=== PATIENT | female | born 1960 | race Caucasian/White ===

== ENCOUNTER → 2021-10-01 07:47 | Outpatient (CLI) | payer OTHER, SELFPAY ==
--- NOTE | ~2021-10-01 | US_ITS ---
EXAMINATION: US right upper quadrant EXAM DATE: 10/01/2021 08:11 INDICATION: Elevated transaminase level . TECHNIQUE: Multiple grayscale and Doppler images of the abdomen right upper quadrant were obtained (b y a technologist who performed the scan) and subsequently reviewed. There is no prior study for mor chang. FINDINGS: The pancreatic head and body are normal in appearance. The pancreatic tail is not visualized. There is echogenic liver parenchyma, hepatic steatosis. There is a 1 cm cyst anteriorly. There is no feliz dence of intrahepatic biliary duct dilation. Portal venous flow was seen in the hepatopedal, normal direction and has normal Doppler waveform. No right-sided hydronephrosis. Common bile duct measures 5 mm, which is normal. The gallbladder wall is normal in thickness, with ex pected amount of distention. No sonographic evidence of pericholecystic fluid. There is no cholelit hiases. Technologist performing exam reports patient did not demonstrate sonographic Iglesias's sign. Please note that this sign is less reliable in patients who have received pain medication. IMPRESSION: Hepatic steatosis. Reviewed, dictated and finalized at location A. RA MAKER IMPRESSION: Hepatic steatosis.
== END ==
PROVIDERS: PCP Internal Medicine; Visit Provider Internal Medicine
DX: R74.01 Elevation of levels of liver transaminase levels (principal); K76.0 Fatty (change of) liver, not elsewhere classified
CPT/HCPCS: 76705

== ENCOUNTER → 2021-11-18 13:33 | Outpatient (CLI) | payer OTHER, SELFPAY ==
--- NOTE | ~2021-11-18 | MM_ITS ---
EXAMINATION: MM screening aria BI w bonifacio HISTORY: Screening TECHNIQUE: Craniocaudal and mediolateral oblique 3-D tomosynthesis images were obtained and synthetic 2-D images were generated. CAD analysis was submitted and interpreted. COMPARISON: No prior mammogram is available for comparison at this institution. BREAST PARENCHYMAL COMPOSITION: There are scattered areas of fibroglandular density. FINDINGS: There is no evidence of suspicious mass, calcification, or architectural distortion to sugg est malignancy in either breast. There has been no suspicious interval change. IMPRESSION: 1. No mammographic evidence of malignancy. 2. Recommend routine screening mammography in one year. BI-RADS Category 1: Negative Reviewed, dictated and finalized at location A. R SPATIAL SCIENTIST
== END ==
PROVIDERS: PCP Internal Medicine; Visit Provider Internal Medicine
DX: Z12.31 Encounter for screening mammogram for malignant neoplasm of breast (principal)
CPT/HCPCS: 77063; 77067

== ENCOUNTER 2023-05-24 11:47 | Emergency (ER) | payer OTHER, SELFPAY ==
--- NOTE | ~2023-05-24 | XR_ITS ---
EXAMINATION: XR foot LT min 3V DATE: 05/24/2023 12:33 INDICATION: Left foot injury and pain. TECHNIQUE: 4 views of left foot were obtained. COMPARISON: None. FINDINGS: Bone alignment is normal. No fracture. There is mild osteoarthritis of first metatarsophala ngeal joint and some of the interphalangeal joints. IMPRESSION: 1. Mild polyarticular osteoarthritis. Reviewed, dictated and finalized at location A.
[2023-05-24 12:06] VITALS: BP 178/86; PULSE 90; RESP 16; TEMP 36.6; O2SAT 99
--- NOTE | 2023-05-24 12:33 | ED.LOWEXIN ---
HPI - Extremity Injury (Lower) General Chief Complaint: Extremity Injury, Lower Stated Complaint: Broken toes 10 days ago; issues with ball of foot Time Seen by Provider: 05/24/23 12:20 Source: patient, RN notes reviewed and old records reviewed Mode of arrival: ambulatory Limitations: no limitations History of Present Illness HPI Narrative: 62 year old female who presents to [facility] care with complaints of injury to her left foot 10 days and has been wearing boot. She states that 10 days ago she fell and got 2nd and 3rd toes left foot caught and twisted in sandal and had been wearing boot for support. She reports that on Wednesday she took boot off and now is having pain in the ball of her left foot and painful to walk on it and it is popping when she walks, has been walking on heel. Patient has been using ice to her left foot for comfort measure.No obvious deformity noted, circulation and sensation is intact to left foot. MD complaint: foot injury Onset (ago): day(s) (10) Type of Injury: other (twisted 2nd and 3rd toes in sandal when she fell) Severity scale (1-10): 4 Exacerbating factors: weight bearing and other (walking) Treatments prior to arrival: cold therapy and other (wearing orthopedic boot) Related Data Allergies Allergy/AdvReac Type Severity Reaction Status Date / Time No Known Allergies Allergy Verified 05/24/23 12:01 Review of Systems Review of Systems: CONSTITUTIONAL: Denies fever, chills, or sweats. EYES: Denies visual changes, redness, or discharge. ENT: Denies rhinorrhea, congestion, sore throat, or otalgia. CARDIOVASCULAR: Denies chest pain, palpitations, or edema. RESPIRATORY: Denies cough or dyspnea. GASTROINTESTINAL: Denies abdominal pain, nausea, vomiting, or diarrhea. GENITOURINARY: Denies dysuria or hematuria. SKIN: Denies rash or itching. MUSCULOSKELETAL: Denies back pain, positive for left foot pain or myalgia. NEUROLOGIC: Denies headache, numbness, or weakness. PSYCHIATRIC: Denies anxiety or depression. All systems reviewed & are unremarkable except as noted in HPI and below [facility] Social History Social History (Updated 05/25/23 @ 14:16 by Amina Cardona NP) Smoking status: Never smoker Alcohol intake: unknown Substance use type: does not use Living arrangements: with family Gender identity (if verbalized by the patient): Female Comments At time of signature, agree with nursing past medical, surgical, social and family history. There is no relevant family history pertinent to the presenting complaint Exam Narrative: GENERAL: Well-appearing, well-nourished, and in no acute distress. HEAD: Normocephalic, atraumatic. EYES: PERRLA and EOMI. ENT: Nares clear, no rhinorrhea or epistaxis. Mucous membranes moist. NECK: Supple. no lymphadenopathy CHEST: Clear to auscultation. No respiratory distress.SAO2 99% on room air HEART: Regular rate and rhythm. No murmur heard. Normal peripheral pulses. ABDOMEN: Soft, nontender, nondistended, normal active bowel sounds. EXTREMITIES: Normal range of motion. No edema.Pain to the ball of her left foot since Wednesday 3 days, had toe injury left 2nd,3rd toe 10 days ago had been wearing boot for support and using ice. no obvious deformity to left foot, circulation sensation and mobility is intact but with pain with ambulation to ball of left foot. SKIN: Warm, dry, no rash. NEURO: No focal deficits. Alert and oriented x3. Course Course Emergency Course: Patient is aware of diagnosis, understands and agrees to treatment plan.? Anticipatory guidance given.? Patient agrees to follow-up as directed and is aware of reasons to seek care at the emergency department. Portions of this record may have been created with voice recognition software Level of Care: Express Care Visit Vital Signs Vital signs: Vital Signs Temperature 36.6 C 05/24/23 12:06 Pulse Rate 90 05/24/23 12:06 Respiratory Rate 16 05/24/23 12:06 Blood Pressure 178/86 H 05/08
== END 2023-05-24 12:52 | disposition home or self-care (01) ==
PROVIDERS: Emergency Provider Registered Nurse; PCP Internal Medicine
DX: M79.672 Pain in left foot (principal)
CPT/HCPCS: 73630; 99213; G0463

== ENCOUNTER 2023-09-08 08:10 | Outpatient (CLI) | payer OTHER, SELFPAY ==
[2023-09-08 18:57] LABS: Basophils Absolute Auto 0.1 K/mm3 (0.0-0.1); Eosinophils Absolute Auto 0.1 K/mm3 (0-0.3); Eosinophils Percent Auto 2.8 % (0-4.4); Hematocrit 42.6 % (37.0-47.0); Hemoglobin 13.9 g/dL (12.0-15.0); Immature Granulocyte Absolute 0.01 K/mm3 (0.00-0.031); Immature Granulocyte Percent A 0.2 % (0-0.5); Lymphocytes Absolute Auto 1.69 K/mm3 (0.9-3.2); Lymphocytes Percent Auto 33.9 % (18.3-44.2); Mean Corpuscular HGB Conc 32.6 g/dl (32-36); Mean Corpuscular Hemoglobin 34.1 pg (26-34); Mean Corpuscular Volume 104.4 fl (80-100); Mean Platelet Volume 10.3 fl (7.4-10.4); Monocytes Absolute Auto 0.6 K/mm3 (0.1-0.6); Neutrophils Absolute Auto 2.5 K/mm3 (1.3-6.7); Neutrophils Percent Auto 50.1 % (45.5-73.1); Platelet Count Result 208 k/mm3 (150-375); Red Blood Count 4.08 M/mm3 (4.2-5.4); Red Cell Distribution Width 11.8 % (11.5-14.5)
[2023-09-08 20:31] LABS: Vitamin D 25 Hydroxy 54.2 ng/mL
[2023-09-08 21:30] LABS: Alanine Aminotransferase 75 U/L (6-35); Albumin Level 4.5 g/dL (3.5-5.1); Alkaline Phosphatase 86 U/L (38-126); Anion Gap 6 mmol/L (8-16); Aspartate Amino Transferase 73 U/L (14-36); Bilirubin,Total 0.9 mg/dL (0.2-1.3); Blood Urea Nitrogen 11 mg/dL (7-17); Calcium 9.8 mg/dL (8.4-10.2); Carbon Dioxide 31 mmol/L (22-30); Chloride 98 mmol/L (98-107); Cholesterol 260 mg/dL (0-200); Estimated Glomerular Filt Rate > 60; Glucose 90 mg/dL (65-110); HDL Direct 82 mg/dL; Sodium 135 mmol/L (137-145); Triglycerides 79 mg/dL (<150)
[2023-09-08 21:43] LABS: LDL Cholesterol Direct 146 mg/dL
== END 2023-09-08 08:11 | disposition home or self-care (01) ==
LOC: ANHGOSHLAB 08:12
PROVIDERS: PCP Family Medicine; Visit Provider Family Medicine
DX: Z00.00 Encounter for general adult medical examination without abnormal findings (principal); E66.9 Obesity, unspecified; I10 Essential (primary) hypertension; K21.9 Gastro-esophageal reflux disease without esophagitis; Z79.899 Other long term (current) drug therapy
CPT/HCPCS: 36415; 80053; 80061; 82306; 82607; 82728; 84443; 85025

== ENCOUNTER → 2023-12-23 09:57 | Outpatient (CLI) | payer OTHER, SELFPAY ==
--- NOTE | ~2023-12-23 | MM_ITS ---
EXAMINATION: MM screening aria BI w bonifacio HISTORY: Screening mammogram TECHNIQUE: Craniocaudal and mediolateral oblique 3-D tomosynthesis images were obtained and synthetic 2-D images were generated. CAD analysis was submitted and interpreted. COMPARISON: 11/18/2021 BREAST PARENCHYMAL COMPOSITION: There are scattered areas of fibroglandular density. FINDINGS: No suspicious mass, calcification, or architectural distortion are identified in either nancy ast to suggest malignancy. There has been no suspicious interval change. IMPRESSION: 1. No mammographic evidence of malignancy. 2. Recommend routine screening mammography in one year. BI-RADS Category 1: Negative Reviewed, dictated and finalized at location A. ING SANDER
== END ==
PROVIDERS: PCP Family Medicine; Visit Provider Family Medicine
DX: Z12.31 Encounter for screening mammogram for malignant neoplasm of breast (principal)
CPT/HCPCS: 77063; 77067

== ENCOUNTER 2024-01-21 14:42 | Emergency (ER) | payer OTHER, SELFPAY ==
--- NOTE | ~2024-01-21 | XR_ITS ---
EXAMINATION: XR finger 4th LT min 2V DATE: 01/21/2024 15:17 INDICATION: One month of pain at the distal left fourth digit TECHNIQUE: Dorsal palmar, lateral and 2 oblique views of the left fourth digit were obtained COMPARISON: None FINDINGS: Intra-articular fracture at the base of the left fourth distal phalanx with mild dorsal and proximal distraction of a small fragment at the dorsal base of the left fourth distal phalanx. This is nearly indiscernible on all but the lateral projection. There is less than 1 mm step-off along the articular surface. No other fractures identified. Mild osteoarthritis at the visualized interphalangeal joints and at the first carpometacarpal joint. IMPRESSION: 1. Mild dorsal and proximal distraction of a small likely avulsion fracture fragment at the dorsal ba se of the left fourth distal phalanx. Reviewed, dictated and finalized at location B. IMPRESSION: 1. Mild dorsal and proximal distraction of a small likely avulsion fracture fra gment at the dorsal base of the left fourth distal phalanx.
[2024-01-21 15:06] VITALS: BP 156/96; PULSE 76; RESP 16; TEMP 37; O2SAT 99
[2024-01-21 15:09] VITALS: BP 156/96; PULSE 76; RESP 16; TEMP 37; O2SAT 99
--- NOTE | 2024-01-21 15:39 | ED.EXTPRO ---
HPI - Extremity Problem General Chief complaint: Extremity Injury, Upper Stated complaint: Left Finger Injury Time Seen by Provider: 01/21/24 15:32 Source: patient and RN notes reviewed Mode of arrival: ambulatory Limitations: no limitations History of Present Illness HPI Narrative: Patient presents today complaining of an injury to the left 4th finger. Approximately 1 month ago, patient jammed her finger when she fell in her yard letting her dogs outside. She has applied ice and wore a splint occasionally. She is currently pain-free but complains of stiffness to the D IP. Related Data Home Medications Medication Instructions Recorded Confirmed clobetasol 0.05 % scalp solution 1 applic topical DAILY PRN Itching 09/07/23 01/21/24 fluocinonide 0.05 % topical 1 applic topical DAILY PRN Itching 09/07/23 01/21/24 solution ivermectin 1 % topical cream 1 applic topical DAILY 09/07/23 01/21/24 (Soolantra) multivitamin 1 tablet PO DAILY 09/07/23 01/21/24 Allergies Allergy/AdvReac Type Severity Reaction Status Date / Time No Known Allergies Allergy Verified 01/21/24 15:07 Review of Systems Review of Systems: CONSTITUTIONAL: Denies body aches, fever, chills, or sweats. EYES: Denies visual changes, redness, or discharge. ENT: Denies rhinorrhea, congestion, sore throat, or otalgia. CARDIOVASCULAR: Denies chest pain, palpitations, or edema. RESPIRATORY: Denies cough or dyspnea. GASTROINTESTINAL: Denies abdominal pain, nausea, vomiting, or diarrhea. GENITOURINARY: Denies dysuria or hematuria. SKIN: Denies rash, itching, or wounds. MUSCULOSKELETAL: Denies back pain or myalgia.+ finger injury NEUROLOGIC: Denies headache, numbness, tingling, or weakness. PSYCH: Denies depression or anxiety. [facility] Past Medical History Medical History Allergies Broken arm Right Surgery as a child GERD (gastroesophageal reflux disease) Family History Family History Father Alcoholism Carcinoma of colon Lung cancer Mother COPD (chronic obstructive pulmonary disease) Sibling Lung cancer Brain cancer Grandparent Lung cancer Heart disease Social History Social History Smoking status: Never smoker Alcohol intake: current Substance use type: does not use Living arrangements: with family Gender identity (if verbalized by the patient): Female Comments At time of signature, I have reviewed and agree with nursing past medical, surgical, social and family history unless otherwise noted. Please see nursing chart for further information. There is no relevant family history pertinent to the presenting complaint Exam Narrative: GENERAL: Well-appearing, well-nourished, and in no acute distress. HEAD: Normocephalic, atraumatic. EYES: EOMI. No redness or drainage. Conjunctivae normal. ENT: Mucous membranes pink and moist. NECK: Normal AROM. CHEST: No respiratory distress. EXTREMITIES: Left 4th finger: Mild edema and hyperpigmentation to the D IP and distal phalanx. Mildly tender to palpation. Distal sensation intact. Capillary refill normal. Somewhat decreased range of motion of the D IP due to swelling. SKIN: Warm, dry, no rash. Capillary refill normal. Normal skin turgor. NEURO: No focal deficits. Alert and oriented x3. Gait steady. PSYCH: Normal affect. No signs of depression or anxiety. Course Course Level of Care: Express Care Visit Vital Signs Vital signs: Vital Signs Temperature 98.6 F 01/21/24 15:06 Pulse Rate 76 01/21/24 15:06 Respiratory Rate 16 01/21/24 15:06 Blood Pressure 156/96 H 01/21/24 15:06 Pulse Oximetry 99 01/21/24 15:06 Temperature 98.6 F 01/21/24 15:09 Pulse Rate 76 01/21/24 15:09 Respiratory Rate 16 01/21/24 15:09 Blood Pressure 156/96 H 01/21/24 15:09 Pul
== END 2024-01-21 15:46 | disposition home or self-care (01) ==
PROVIDERS: Emergency Provider Nurse Practitioner; PCP Family Medicine
DX: S62.635A Displaced fracture of distal phalanx of left ring finger, initial encounter for closed fracture (principal); W19.XXXA Unspecified fall, initial encounter; K21.9 Gastro-esophageal reflux disease without esophagitis
CPT/HCPCS: 73140; 99213; G0463

== ENCOUNTER 2024-11-21 08:58 | Outpatient (CLI) | payer OTHER, SELFPAY ==
--- NOTE | ~2024-11-21 | DEXA_ITS ---
Bone Density Report Name: JOHN RUSSELL Age: 64 Sex: Female Ethnicity: White Date of : 1960 Indication: postmenopausal; screening for osteoporosis; Referring Provider: LARRY, HUGH Study: Bone densitometry was performed. Exam Date: November 21, 2024 Accession number: [id number] Bone Density: Region BMD T-score Z-score Classification AP Spine(L1-L4) 0.867 -1.6 0.0 Osteopenia Femoral Neck (Left) 0.599 -2.3 -0.8 Osteopenia Total Hip (Left) 0.719 -1.8 -0.7 Osteopenia Femoral Neck (Right) 0.605 -2.2 -0.8 Osteopenia Total Hip (Right) 0.754 -1.5 -0.4 Osteopenia Femoral Neck Mean 0.602 -2.2 -0.8 Osteopenia Total Hip Mean 0.736 -1.7 -0.6 Osteopenia World Health Organization criteria for BMD impression classify patients as: Normal (T-score at or above -1.0), Osteopenia (T-score between -1.0 and -2.5), or Osteoporosis (T-score at or below -2.5). Clinical Information Provided by Patient: Has used the following medications: Vitamin D Patient maximum height was 62 Drinks caffeinated beverages Onset of menses at age 12 Number of children 2 Impression: The patient has low bone mass, based on the Left Femoral Neck T-score. Discussion: BONE DENSITY IS LOW AT ONE OR MORE SKELETAL SITES. This patient's lowest T-score is low at one or more skeletal sites. It meets the World Health Organization's (WHO) criteria for ?low bone mass? (T-score between -1.0 and -2.5). The patient's 10-year risk of fracture as calculated by FRAX is less than the threshold where pharmacological therapy is recommended by the National Osteoporosis Foundation (NOF). However, all treatment decisions require clinical judgment and consideration of individual patient factors, including patient preferences, comorbidities, previous drug use, risk factors not captured in the FRAX model (e.g., frailty, falls, vitamin D deficiency, increased bone turnover, interval significant decline in bone density) and possible under or overestimation of fracture risk by FRAX. The patient should follow a healthful lifestyle (good nutrition with adequate calcium and vitamin D, and appropriate weight-bearing exercise). Follow-Up: Consider repeating this study in 2 to 3 years to reassess this patient's status, or sooner if there is some new clinical indication. Reported by: SARAH on 11/21/2024 9:32:00 AM. Reviewed, dictated and finalized at location A.
== END 2024-11-21 08:59 | disposition home or self-care (01) ==
LOC: CHSIMG 09:01
PROVIDERS: PCP Family Medicine; Visit Provider Nurse Practitioner Women's Health
DX: Z78.0 Asymptomatic menopausal state (principal); M85.89 Other specified disorders of bone density and structure, multiple sites
CPT/HCPCS: 77080

== ENCOUNTER 2024-12-07 01:18 | Day surgery (SDC) | payer OTHER, SELFPAY ==
[2024-11-23 15:47] VITALS: BMI 31.7
--- OUTSIDE RECORDS SUMMARY | 2024-12-07 01:24 | XMS_ITS | Encounter Summary ---
Author Organization [facility] Address [address] [place] [address]. [place], [place] [id number] [place] [address] Care Team Providers Care Wrapper Stemmer Operator Name Role Phone Jj Escobedo MD Primary Care Provider Encounter Details Date Type Department Care Team (Latest Contact Info) Description 12/01/2024 [employer] Message Enc [facility] Multispecialty Care - [place] [address] [place] [address] [address] [place] [address] [place] [address] [place] [address] [address] [place], [place] [id number] Signs of dementia Social History Tobacco Use Types Packs/Day Years Used Date Smoking Tobacco: Former Cigarettes 0.5 15 Smokeless Tobacco: Never Comments:quit 30 years ago . Counseled by Dr Escobedo. Alcohol Use Standard Drinks/Week Comments Yes 1.7 (1 standard drink = 0.6 oz p ure alcohol) 1 glass a night PHQ-2 Answer Date Recorded PHQ-2 Score - If the patient scores above 3, please move on to questions 3-9 1 08/27/2021 Comments No Sex and Gender Information Value Date Recorded Sex Assigned at Not on file Legal Sex Female 2:43 PM CDT Gender Identity Not on file Sexual Orientation Not on file documented as of this encounter Plan of Treatment Not on file documented as of this encounter Visit Diagnoses Not on filedocumented in this encounter Additional Health Concerns Assessment Noted Time PHQ-9 Depression Total Score: 4 08/27/20 21 10:30 AM CDT documented as of this encounter Care Teams Wrapper Stemmer Operator Relationship Specialty Start Date End Date Jj Escobedo MD [address] [facility] [address] [place] [address] PCP - General INTERNAL MEDICINE 04/04/21 documented as of this encounter
--- OUTSIDE RECORDS SUMMARY | 2024-12-07 01:24 | XMS_ITS | Encounter Summary ---
Author Organization [facility] Address [facility] [place], [place] [id number] [place] [address] Care Team Providers Care Route Driver Name Role Phone Jj Escobedo MD Primary Care Provider [phone] Encounter Details Date Type Department Care Team (Latest Contact Info) Description 11/20/2021 [employer] Message Enc [facility] Medical [facility] Multispecialty Care - [place] [address] [place] [address] [address] [place] [address] [place] [address] [place] [address] [address] [place], [place] [id number] Due for next visit. Social History Tobacco Use Types Packs/Day Years [...] documented as of this encounter Care Teams Route Driver Relationship Specialty Start Date End Date Jj Escobedo MD [address] [address] PCP - General INTERNAL MEDICINE 04/04/21 documented as of this encounter
--- OUTSIDE RECORDS SUMMARY | 2024-12-07 01:24 | XMS_ITS | Clinical Summary ---
Author Organization [facility] Address [address] [place] [address] Care Team Providers Care Ride Attendant Name Role Phone Betty Torre Primary Care Provider [phone] Allergies No known active allergies Medications Medication Sig Dispensed Refills Start Date End Date Status rizatriptan (MAXALT) 10 MG tablet Take 10 mg by mouth as needed for Migraine. Take 1 tablet by mouth at onset of migraine. May repeat after 2 hours if needed. Active sulfamethoxazole-trim ethoprim (BACTRIM DS) 800-160 MG per tablet Take 1 tablet by mouth 2 times daily. 14 tablet 05/07/2019 Active Medical History Medical History Date Comments Migraine Social History Tobacco Use Types Packs/Day Years Used Date Smoking Tobacco: Never Assessed Inadequate Housing Answer Date Recorded Social Determinants: Housing (Overall Score Help er) 0 06/21/2019 Sex and Gender Information Value Date Recorded Sex Assigned at Not on file Gender Identity Not on file Sexual Orientation Not on file Obstetrics History Last Filed Vital Signs Vital Sign Reading Time Taken Comments Blood Pressure 120/80 05/07/2019 2:13 PM CDT Pulse 80 05/07/2019 2:13 PM CDT Temperature 36.7 ??C (98 ??F) 05/07/2019 2:13 PM CDT Respiratory Rate 18 05/07/2019 2:13 PM CDT Oxygen Saturation - - Inhaled Oxygen Concentration - - Weight - - Height - - Body Mass Index - - Plan of Treatment Health Maintenance Due Date Last Done Comments Depression Screening [address] Breast Cancer [address]ening [address] CT Colonography 2006 Cologuard 2006 Colonoscopy 2006 Colorectal Cancer Screen 2006 Fecal Occult Blood 2006 Sigmoidoscopy 2006 Shingles Vaccine (1 of 2) 2011 COVID-19 Vaccine (2023-2 5 season) 2024 Influenza Vaccine (#1) 2024 DTaP/Tdap/Td Vaccine (4 - Td or Tdap) 06/10/2028 06/10/2018, 04/07/2013, 03/16/2013 HPV Vaccine Aged Out No longer eligi ble based on patient's age to complete this topic Hepatitis B Vaccine (For Physician/APC Discussion) Aged Out No longer elig ible based on patient's age to complete this topic Meningococcal Vaccine Aged Out No [place] [facility] eligible based on patient's age to complete this topic Pneumococcal Vaccine 0-49 Aged Out No longer eligible based on patient's age to complete this topic Care Teams Ride Attendant Relationship Specialty Start Date End Date Betty Torre DO PCP - General 05/07/19
--- OUTSIDE RECORDS SUMMARY | 2024-12-07 01:24 | XMS_ITS | Clinical Summary ---
Author Organization [facility] Address [address] [place] [address]. [place] [address] [place] [address] Care Team Providers Care Epic Cupid Analyst Name Role Phone Jj Escobedo MD Primary Care Provider [phone] Allergies No known active allergies Medications fluocinonide 0.05 % external solution Active Cetirizine HCl (ZYRTEC ALLERGY) 10 MG CapIndications:S easonal allergies Take 10 mg by mouth daily. 30 capsule 1 Active fluticasone propionate (FLONASE) 50 MCG/ACT nasal sprayIndications :Seasonal allergies 2 sprays by Nasal route daily. 16 g 5 1 Active montelukast (SINGULAIR) 10 MG tabletIndication s:Seasonal allergies Take 1 tablet (10 mg total) by mouth nightly at bedtime. 90 tablet 1 1 Active famotidine 20 MG tabletIndication s:Gastroesophage al reflux disease without esophagitis Take 1 tablet (20 mg total) by mouth 2 (two) times daily. 60 tablet 2 1 Active rizatriptan 10 MG tabletIndication s:Migraine without aura and without status migrainosus, not intractable Take 1 tablet (10 mg total) by mouth as needed for Migraine. 30 tablet 1 Active metroNIDAZOLE 1 % gelIndications:R osacea Apply topically daily. 55 g 2 1 Active traZODone 50 MG tabletIndication s:Mild episode of recurrent major depressive disorder (CMS/HCC),Primar y insomnia Take 1 tablet (50 mg total) by mouth nightly at bedtime. 30 tablet 1 Active Active Problems Problem Noted Date Diagnosed Date Migraine without aura and wi thout status migrainosus, not intractable 05/05/2021 Gastroesophageal reflux disease without esophagi tis 04/04/2021 Seasonal allergies 04/04/2021 Overweight (BMI 25.0-29.9) 04/04/2021 Chronic left shoulder pain 10/19/2018 Primary osteoarthritis involving multiple joints 04/07/2016 Resolved Problems Problem Noted Date Diagnosed Date Resolved Date Difficulty sleeping 06/07/2017 04/04/20 21 Trochanteric bursitis, right hip 04/07/2016 04/04/2021 Midline low back pain without sciatica 04/07/2016 04/04/2021 Numbness 09/04/2015 04/04/2021 Encounters Date Type Department Care Team Description 12/01/2024 MyChart Message Enc [facility] Multispecialty Care - [address] [place], [place] [id number] Jj Escobedo MD Signs of dementia 09/14/2024 Scan [facility] HEALTH INFO SRVCS Scanned, Doc Med Group from Last 3 Months Immunizations Name Administration Dates Next Due Flucelvax 6 Months+ (Prefilled Syringe) 08/05/20 21 Influenza Adult (Generic) 09/16/2023,08/19/2022, 08/05/2021 PFIZER COVID-19 (12+) MRNA, LNP-S, PF, EDNA-SUCROSE, 30 MCG/0.3 ML (COMIRNATY) 09/16/2023 PFIZER COVID-19 (ORIGINAL FO RMULATION, PURPLE CAP) mRNA, LNP-S, PF, 30 MCG/0.3 ML DOSE 09/16/2023 PFIZER COVID-19 BIVALENT (12 +) mRNA, LNP-S, PF, 30 MCG/0.3 ML DOSE 09/14/2024 Shingrix 06/10/2023,02/22/2023 Tdap (Generic) 06/10/2018,04/07/2013 Family History Medical History Relation Comments Colon Cancer Father Lung Cancer Father Heart Attack Maternal Grandfather at age 64 Heart Attack Maternal Grandmother at age 65 COPD Mother Lung Cancer Paternal Grandmother Lung Cancer Sister Relation Status Comments Father Maternal Grandfather Maternal Grandmother Mother Paternal Grandmother Sister Alive Social History Tobacco Use Types Packs/Day Years Used Date Smoking Tobacco: Former Cigarettes 0.5 15 Smokeless Tobacco: Never Tobacco Cessation:Counseling Given: Yes Comments:quit 30 years ago . Counseled by [...] on file Sexual Orientation Not on file Last Filed Vital Signs Vital Sign Reading Time Taken Comments Blood Pressure 135/88 08/27/2021 10:01 AM CDT Pulse 76 08/27/2021 10:01 AM CDT Temperature 36.7 ??C (98.1 ??F) 08/27/2021 10:01 AM C DT Respiratory Rate 16 08/27/2021 10:01 AM CDT Oxygen Saturation 98% 08/27/2021 10:01 AM CDT Inhaled Oxygen Concentration - - Weight 69.9 kg (154 lb) 08/27/2021 10:01 AM CDT Height 160 cm (5' 3 ) 08/27/2021 10:01 AM CDT Body Mass Index 27.28 08/27/2021 10:01 AM CDT Plan of Treatment Health Maintenance Due Date Last Done Comments Cervical Cancer Screening Pap Smear (Age 30 to 64) Every 3 Years 04/18/2021 04/18/2018 Annual Physical 05/05/2022 05/05/2021 Cervical Cancer Screening Pap with HPV Testing (Age 30 to 64) Every 5 Years 04/18/2023 04/18/2018, 04/18/2018 Cervical Cancer Screening with HPV 04/18/2023 Mammogram Screening 11/18/2023 11/18/2021, Colorectal Cancer Screening FIT-DNA (3 Years) 05/21/2024 05/21/2021 Influenza Adult (#1) 2024 09/16/2023, 08/19/2022, 08/05/2021, Additional history exists PHQ-2 (Physician [place]) 11/08/2024 COVID-19 Vaccine ( season) 2024 09/14/2024, 09/16/2023, 09/16/2023, Additional history exists DTaP, Tdap and Td Vaccines (3 - Td or Tdap) 06/10/2028 06/10/2018, 04/07/2013 RSV Immunization or 60+ Years (1 - 1-dose 75+ series) 2036 Hepatitis C Completed 08/27/2021 Zoster Vaccines Completed 06/10/2023, 02/22/2023 Meningococcal B Vaccine Aged Out No l onger eligible based on patient's age to complete this topic Meningococcal Vaccine Aged Out No [place] kin eligible based on patient's age to complete this topic Pneumococcal Vaccine: Pediatrics (0 to 5 Years) and At-Risk Patients (6 to 64 Years) Aged Out No longer eligible based on patient's age to complete this topic RSV Immunizations Under 20 Months Aged Out No longer eligible based on patient's age to complete this topic Procedures Procedure Name Priority Date/Time Associated Diagnosis Comments MAMMOGRAM GENERIC (SCAN ORDER) 11/18/2021 HEPATITIS C ANTIBODY W/RFX TO HCV RNA Routine 08/27/2021 10:39 AM CDT Elevated transaminase level COLOGUARD (EXACT SCIENCE) Routine 05/21/2021 7:30 AM CDT Screening for colon cancer OUTSIDE CYTOPATH CERV/VAG INTERPRET (PAP) 04/18/2018 from Last 3 Months or Most Recently Relevant to Health Maintenance Results * MAMMOGRAM GENERIC (11/18/2021) Anatomical Region Laterality Modality Other 11/18/2021 Narrative 11/18/2021 Ordered by an unspecified provider. us Documents Scanned SCANNING Final Result * HEPATITIS C ANTIBODY W/RFX TO HCV RNA ([facility] ONLY) (08/27/2021 10:39 AM CDT) HEPATITIS C AB NON-REACTI VE NON-REACT DOMINGO [facility] SIGNAL TO CUTOFF 0.02 <[address] [facility] Comment: HCV antibody was non-reactive. There is no laboratory evidence of HCV infection. In most cases, no further action is required. However, if recent HCV exposure is suspected, a test for HCV RNA (test code 96554) is suggested. For additional information please refer to http://education.Yebhi/faq/CMY57j5 (This link is being provided for informational/ educational purposes only.) 08/27/2021 10:3 9 AM CDT 08/28/2021 9:09 AM CDT Jj Escobedo MD LABORATORY Final Result [facility] [address] [place] [address] * COLOGUARD (EXACT SCIENCE) (05/21/2021 7:30 AM CDT) COLOGUARD RESULT Negative Negative [id number] (CLIA #:[id number]) Comment: NEGATIVE TEST RESULT. A negative Cologuard result indicates a low likelihood that a colorectal cancer (CRC) or advanced adenoma (adenomatous polyps with more advanced pre-malignant features) ??is present. The chance that a person with a negative Cologuard test has a colorectal cancer is less than 1 in 1500 (negative predictive value >99.9%) or has an ??advanced adenoma is less than ??5.3% (negative predictive value 94.7%). These data are based on a prospective cross-sectional study of 10,000 individuals at average risk for colorectal cancer who were screened with both Cologuard and colonoscopy. (Kurt Mullins al, N Engl J Med 2014;370(14):1286- 1297) The normal value (reference range) for this assay is negative. COLOGUARD RE-SCREENING RECOMMENDATION: Periodic colorectal cancer screening is an important part of preventive healthcare for asymptomatic individuals at average risk for colorectal cancer. ??Following a negative Cologuard result, the [place] Cancer Society and U.S. Multi-Society Task Force screening guidelines recommend a Cologuard re-screening interval of 3 years. References: [place] Cancer Society Guideline for Colorectal Cancer Screening: https://www.cancer.org/cancer/leard-pzvjtj-dsdrql/ophaixcpl-mgiqfgxyq-ioearql/ac s-rec ommendations.html.; Reymundo DK, Tonia CR, Wendy TayK, Colorectal Cancer Screening: Recommendations for Physicians and Patients from the U.S. Multi-Society Task Force on Colorectal Cancer Screening , Am J Gastroenterology 2017; 112:3829-3707. TEST DESCRIPTION: Composite algorithmic analysis of stool DNA-biomarkers with hemoglobin immunoassay. ?? Quantitative values of individual biomarkers are not reportable and are not associated with individual biomarker result reference ranges. Cologuard is intended for colorectal cancer screening of adults of either sex, 45 years or older, who are at average-risk for colorectal cancer (CRC). Cologuard has been approved for use by the U.S. FDA. The performance of Cologuard was established in a cross sectional study of average-risk adults aged 50-84. Cologuard performance in patients ages 45 to 49 years was estimated by sub-group analysis of near-age groups. Colonoscopies performed for a positive result may find as the most clinically significant lesion: colorectal cancer [4.0%], advanced adenoma (including sessile serrated polyps greater than or equal to 1cm diameter) [20%] or non- advanced adenoma [31%]; or no colorectal neoplasia [45%]. These estimates are derived from a prospective cross-sectional screening study of 10,000 individuals at average risk for colorectal cancer who were screened with both Cologuard and colonoscopy. (Kurt Mullins al, N Engl J Med 2014;370(14):5518-2412.) Cologuard may produce a false negative or false positive result (no colorectal cancer or precancerous polyp present at colonoscopy follow up). A negative Cologuard test result does not guarantee the absence of CRC or advanced adenoma (pre-cancer). The current Cologuard screening interval is every 3 years. ([place] Cancer Society and U.S. Multi-Society Task Force). Cologuard performance data in a 10,000 patient pivotal study using colonoscopy as the reference method can be accessed at the following location: www.SHADO.com/results. Additional description of the Cologuard test process, warnings and precautions can be found at www.cologKnottykartrd.com. Stool specimen (specimen) STOOL SPECIMEN / Unknown 05/21/2021 7:30 AM CDT 05/22/2021 6:41 PM CDT Jj Escobedo MD BODY FLUIDS AND STOOLS ORDERABLE S Final Result [facility] [address] [place] [address], [facility] (CLIA #:[id number]) [address] [place] [address] * OUTSIDE CYTOPATH VAG/CERV PAP WITH HPV (04/18/2018) 04/18/2018 Narrative 04/18/2018 Ordered by an unspecified provider. us Documents Scanned SCANNING Final Result from Last 3 Months or Most Recently Relevant to Health Maintenance Insurance Care Teams Epic Cupid Analyst Relationship Specialty Start Date End Date Jj Escobedo MD [address] [facility] [address] [place] [address] PCP - General INTERNAL MEDICINE 04/04/21
--- OUTSIDE RECORDS SUMMARY | 2024-12-07 01:24 | XMS_ITS | Referral Summary ---
Author Organization [facility] Address [address] [place], [place] [address] Care Team Providers Care Cloth Washer Back Tender Name Role Phone Betty Torre DO Primary Care Provider [phone] Allergies No known active allergies Medications Medication [...] 2 times daily. 14 tablet 05/07/2019 Active Social History Tobacco Use Types Packs/Day Years [...] Mass Index - - Plan of Treatment Not on file Care Teams Cloth Washer Back Tender Relationship Specialty Start Date End Date Betty Torre DO PCP - General 05/07/19
[2024-12-07 07:37] VITALS: BP 152/80; PULSE 95; RESP 16; TEMP 36.9; O2SAT 98; BMI 29.1
[2024-12-07] MEDS: LACTATED RINGERS 1,000 ML 150 ML IV CONT ×2 (07:47→08:44)
--- NOTE | 2024-12-07 07:57 | P.PNAN_ITS ---
Anes - Initial Pre Proc Eval Procedure: Operation Date: 12/07/24 08:30 Proposed Procedures p Colonoscopy - Piero Tolentino DO Date/Time: 12/07/24 07:57 Surgeon: Piero Tolentino DO Pre Op Diagnosis: Positive Cologuard Patient Data Age: 64 Gender: F Height: 1.59 m Weight: 73.4 kg Last Vital Signs Temp 36.9 C 12/07/24 07:37 Pulse 95 12/07/24 07:37 Resp 16 12/07/24 07:37 BP 152/80 H 12/07/24 07:37 Pulse Ox 98 12/07/24 07:37 O2 Del Method Room Air 12/07/24 07:37 Allergies Allergy/AdvReac Type Severity Reaction Status Date / Time No Known Allergies Allergy Verified 12/07/24 07:36 Home Medications ?Medication ?Instructions ?Recorded ?Confirmed ?Type clobetasol 0.05 % scalp solution 1 applic topical DAILY PRN Itching 09/07/23 11/23/24 History fluocinonide 0.05 % topical 1 applic topical DAILY PRN Itching 09/07/23 11/23/24 History solution ivermectin 1 % topical cream 1 applic topical DAILY 09/07/23 11/23/24 History (Soolantra) multivitamin 1 tablet PO DAILY 09/07/23 11/23/24 History Fish Oil 1 tsp PO DAILY 11/23/24 11/23/24 History cholecalciferol (vitamin D3) 50 50 mcg PO DAILY 11/23/24 11/23/24 History mcg (2,000 unit) capsule doxycycline hyclate 50 mg capsule 50 mg PO DAILY 11/23/24 11/23/24 History vitamin B complex with vit C-folic 1 tablet PO DAILY 11/23/24 11/23/24 History acid 800 mcg-zinc 12.5 mg tablet Patient hx anesthesia problems: none Family hx anesthesia problems: none Results Review: All pre-operative results and documents have been reviewed as part of the pre- operative evaluation. [facility] Past Medical History Medical History Allergies Broken arm Right Surgery as a child GERD (gastroesophageal reflux disease) Family History Family History Father Alcoholism Carcinoma of colon Lung cancer Mother COPD (chronic obstructive pulmonary disease) Sibling Lung cancer Brain cancer Grandparent Lung cancer Heart disease Social History Social History (Updated 12/07/24 @ 08:03 by Konrad Duran, ) Smoking status: Never smoker Alcohol intake: current Alcohol use details: 2 drinks/day Substance use type: does not use Living arrangements: with family Gender identity (if verbalized by the patient): Female Anes - Eval Final PreProcedure Day of Procedure 12/07/24 07:57 Patient weight: overweight Heart: regular rate and rhythm Lungs: clear to auscultation Airway: Mallampati scale class II Neurological: alert and oriented Last oral intake: >/= 8 hours ASA classification: III Emergent: no Anesthetic plan: proceed Anesthesia type and monitoring: general GIVS and standard monitoring Results Review: All pre-operative results and documents have been reviewed as part of the pre- operative evaluation. Informed Consent: The patient's anesthetic plan and its attendant risks and benefits were discussed with the patient/family/POA. Questions were solicited and answers pro vided to the satisfaction of the patient/family/POA.
--- NOTE | 2024-12-07 08:23 | PM.IMHP ---
H&P: HPI History of Present Illness Date/Time: 12/07/24 08:23 Chief Complaint: Positive Cologuard Narrative: This is a 64-year-old woman who presents for colonoscopy. She had a colonoscopy at 51 which was normal. She has then had a couple Cologuard test since then. Her most recent Cologuard test was positive. She denies any hematochezia or melena. She denies any history of colon cancer. Review of Systems Review of Systems: All systems reviewed & are unremarkable except as noted in HPI and below Constitutional: Constitutional: Denies chills, Denies fever(s), Denies headache(s) and Denies weight loss Eyes: Eyes: Denies change in vision ENT: Denies dizziness, Denies headache(s), Denies neck mass and Denies throat swelling Cardiovascular: Cardiovascular: Denies chest pain, Denies lightheadedness and Denies dyspnea Respiratory: Respiratory: Denies cough, Denies dyspnea and Denies wheezing Gastrointestinal: Gastrointestinal: Denies abdominal pain, Denies change in bowel habits, Denies nausea and Denies vomiting Genitourinary: Genitourinary: Denies hematuria and Denies dysuria Musculoskeletal: Musculoskeletal: Reports as per HPI Integumentary/Breasts: Skin/Breast: Reports as per HPI Neurologic: Denies dizziness and Denies headache(s) Allergic/Immunologic: Allergic/Immunologic: Denies throat swelling and Denies wheezing PMF Past Medical History Medical History Allergies Broken arm Right Surgery as a child GERD (gastroesophageal reflux disease) Family History Family History Father Alcoholism Carcinoma of colon Lung cancer Mother COPD (chronic obstructive pulmonary disease) Sibling Lung cancer Brain cancer Grandparent Lung cancer Heart disease Social History Social History (Updated 12/07/24 @ 08:03 by Konrad Duran DO) Smoking status: Never smoker Alcohol intake: current Alcohol use details: 2 drinks/day Substance use type: does not use Living arrangements: with family Gender identity (if verbalized by the patient): Female Meds Home Medications and Allergies Home Medications ?Medication ?Instructions ?Recorded ?Confirmed ?Type clobetasol 0.05 % scalp solution 1 applic topical DAILY PRN Itching 09/07/23 11/23/24 History fluocinonide 0.05 % topical 1 applic topical DAILY PRN Itching 09/07/23 11/23/24 History solution ivermectin 1 % topical cream 1 applic topical DAILY 09/07/23 11/23/24 History (Soolantra) multivitamin 1 tablet PO DAILY 09/07/23 11/23/24 History Fish Oil 1 tsp PO DAILY 11/23/24 11/23/24 History cholecalciferol (vitamin D3) 50 50 mcg PO DAILY 11/23/24 11/23/24 History mcg (2,000 unit) capsule doxycycline hyclate 50 mg capsule 50 mg PO DAILY 11/23/24 11/23/24 History vitamin B complex with vit C-folic 1 tablet PO DAILY 11/23/24 11/23/24 History acid 800 mcg-zinc 12.5 mg tablet Allergies Allergy/AdvReac Type Severity Reaction Status Date / Time No Known Allergies Allergy Verified 12/07/24 07:36 Vital Signs Vital Signs - 24 hr 12/07/24 07:37 Temperature 98.4 F Pulse Rate 95 Respiratory Rate 16 Blood Pressure 152/80 H Pulse Oximetry 98 Oxygen Delivery Room Air Exam Const: General: no acute distress and alert Orientation/consciousness: patient oriented x3 HENMT: Head: normocephalic and atraumatic Ears: hearing grossly normal bilaterally Face/Nose/Sinus: Normal nares present Mouth: Yes Normal oral and palatal mucosa present Eyes: Periorbital: periorbital findings normal Sclera: sclerae normal EOM: EOMs intact bilaterally Neck: Neck: normal visual inspection, no lymphadenopathy and trachea midline Chest: Chest palpation & inspection: normal inspection of the chest Resp: Effort & Inspection: normal respiratory effort Auscultation: clear to auscultation bilaterally Cardio: Jugular venous distension: no JVD Rate: regular rate Rhythm: regular rhythm Heart sounds: S1 normal heart sound present and S2 normal heart sound present Peripheral pulses: Peripheral pulses 2+ throughout GI: Inspection: normal to inspection GI Palp: Yes Soft to palpation, No Tenderness to palpation present (GI), No Guarding due to palpation present (GI) and No Rebound tenderness present Percussion: Yes normal to percussion Auscultation: normal bowel sounds : General: Yes no CVA tenderness Back/Spine/Pelvis: Back: no CVA tenderness Neuro: General: patient oriented x3, no focal motor deficits and CN's II-XI intact bilaterally Cognition (Neuro): normal cognition Speech: normal speech Motor exam (neuro): 5/5 motor strength present throughout Extrem: General: capillary refill normal and no clubbing, cyanosis or edema Assessment and Plan Assessment and plan (1) Positive colorectal cancer screening using Cologuard test: Code(s): R19.5 - Other fecal abnormalities Status: Acute Assessment and Plan: I have recommended colonoscopy. I have discussed the procedure, risks, benefits, and alternatives. Questions were answered. Patient is agreeable to proceed.
[2024-12-07 08:53] VITALS: BP 113/72; PULSE 90; RESP 22; O2SAT 100
[2024-12-07 09:00] VITALS: BP 131/79; PULSE 69; RESP 14; O2SAT 98
[2024-12-07 09:10] VITALS: BP 134/94; PULSE 73; RESP 23; O2SAT 100
== END 2024-12-07 09:19 | disposition home or self-care (01) ==
PROVIDERS: PCP Family Medicine; Visit Provider Surgery
PROC: 0DJD8ZZ Inspection of Lower Intestinal Tract, Via Natural or Artificial Opening Endoscopic (ICD-10-PCS; CPT 45378; principal; 2024-12-07 08:30)
DX: K62.1 Rectal polyp (principal); K21.9 Gastro-esophageal reflux disease without esophagitis; Z80.0 Family history of malignant neoplasm of digestive organs; Z80.1 Family history of malignant neoplasm of trachea, bronchus and lung; Z80.8 Family history of malignant neoplasm of other organs or systems; Z82.49 Family history of ischemic heart disease and other diseases of the circulatory system
CPT/HCPCS: 45380; 88305; J2003; J2704; J7120

== ENCOUNTER 2024-12-25 08:07 | Outpatient (CLI) | payer OTHER, SELFPAY ==
--- OUTSIDE RECORDS SUMMARY | 2024-12-25 11:12 | XMS_ITS | Clinical Summary ---
Author Organization [facility] Address [address] [place] [address] Care Team Providers Care Director Of Counterintelligence Name Role Phone Jj Escobedo MD Primary Care Provider [phone] Allergies No known active allergies Medications fluocinonide [...] mouth nightly at bedtime. 30 tablet 1 1 Active Active Problems Problem Noted Date [...] Care Team Description 12/01/2024 MyChart Message Enc [facility] Multispecialty Care - [address] [place] [address] Jj Escobedo MD Signs of dementia from Last 3 Months Immunizations Name Administration [...] 76 08/27/2021 10:01 AM CDT Temperature 36.7 C (98.1 F) 08/27/2021 10:01 AM CDT Respiratory Rate 16 08/27/2021 10:01 AM CDT [...] 08/19/2022, 08/05/2021, Additional history exists PHQ-2 (Physician [place]) 11/08/2024 COVID-19 Vaccine ( season) 2024 09/14/2024, [...] a test for HCV RNA (test code 06932) is suggested. For additional information please refer to http://education.Wordster/faq/BRF65m4 (This link is being provided for informational/ educational purposes only.) 08/27/2021 10:3 9 AM CDT 08/28/2021 9:09 AM CDT Jj Escobedo MD LABORATORY Final Result [facility] [place] [address] [address] [place] [id number] * COLOGUARD (EXACT SCIENCE) (05/21/2021 7:30 AM CDT) COLOGUARD RESULT Negative Negative [facility] (CLIA #:[id number]) Comment: NEGATIVE TEST RESULT. A negative Cologuard result indicates a low likelihood that a colorectal cancer (CRC) or advanced adenoma (adenomatous polyps with more advanced pre-malignant features) is present. The chance that a person with a negative Cologuard test has a colorectal cancer is less than 1 in 1500 (negative predictive value >99.9%) or has an advanced adenoma is less than 5.3% (negative predictive value 94.7%). These data are based on a prospective cross-sectional study of 10,000 individuals at average risk for colorectal cancer who were screened with both Cologuard and colonoscopy. (Kurt Mullins al, N Engl J Med 2014;370(14):1763-5756) The normal value (reference range) for this assay is negative. COLOGUARD RE-SCREENING RECOMMENDATION: Periodic colorectal cancer screening is an important part of preventive healthcare for asymptomatic individuals at average risk for colorectal cancer. Following a negative Cologuard result, the [place] Cancer Society and U.S. Multi-Society Task Force screening guidelines recommend a Cologuard re-screening interval of 3 years. References: [place] Cancer Society Guideline for Colorectal Cancer Screening: https://www.cancer.org/cancer/eemcd-nglesz-wghksx/lidcpfjrn-fmpuemtco-ybyzmxm/ac s-rec ommendations.html.; Reymundo DK, Tonia DOAN, Wendy TayK, Colorectal Cancer Screening: Recommendations for Physicians and Patients from the U.S. Multi-Society Task Force on Colorectal Cancer Screening , Am J Gastroenterology 2017; 112:5121-6544. TEST DESCRIPTION: Composite algorithmic analysis of stool DNA-biomarkers with hemoglobin immunoassay. Quantitative values of individual biomarkers are not [...] screened with both Cologuard and colonoscopy. (Kurt Saavedra et al, N Engl J Med 2014;370(14):0848-3306.) Cologuard may produce a false negative or false positive result (no colorectal cancer or precancerous polyp present at colonoscopy follow up). A negative Cologuard test result does not guarantee the absence of CRC or advanced adenoma (pre-cancer). The current Cologuard screening interval is every 3 years. ([place] Cancer Society and U.S. Multi-Society Task Force). Cologuard performance data in a 10,000 patient pivotal study using colonoscopy as the reference method can be accessed at the following location: www.[employer].VideoClix/results. Additional description of the Cologuard test process, warnings and precautions can be found at www.XTRMrd.com. Stool specimen (specimen) STOOL SPECIMEN / Unknown 05/21/2021 7:30 AM CDT 05/22/2021 6:41 PM CDT Jj Escobedo MD BODY FLUIDS AND STOOLS ORDERABLE S Final Result [facility] [address] [place] [address], [facility] (CLIA #:[id number]) [address] [place] [address] * OUTSIDE CYTOPATH VAG/CERV PAP WITH HPV (04/18/2018) 04/18/2018 Narrative 04/18/2018 Ordered by an unspecified provider. Documents Scanned SCANNING Final Result from Last 3 Months or Most Recently Relevant to Health Maintenance Insurance [facility] [facility] Care Teams Director Of Counterintelligence Relationship Specialty Start Date End Date Jj Escobedo MD [address] [facility] [address] [place] [address] PCP - General INTERNAL MEDICINE 04/04/21
--- OUTSIDE RECORDS SUMMARY | 2024-12-25 11:12 | XMS_ITS | Encounter Summary ---
Author Organization [facility] Address [address] [place] [address] Care Team Providers Care Nut Roaster Helper Name Role Phone Jj Escobedo MD Primary Care Provider [phone] Encounter Details Date Type Department Care Team (Latest Contact Info) Description 12/01/2024 CompStak Message Enc [facility] Multispecialty Care - [place] [address] [place] [address] [address] [place], [place] [id number] [place] [address] [place] [address] [address] [place], [place] [id number] Signs of dementia Social History Tobacco Use [...] documented as of this encounter Care Teams Nut Roaster Helper Relationship Specialty Start Date End Date Jj Escobedo MD [address] [facility] [address] [place] [address] PCP - General INTERNAL MEDICINE 04/04/21 documented as of this encounter
--- OUTSIDE RECORDS SUMMARY | 2024-12-25 11:12 | XMS_ITS | Encounter Summary ---
Author Organization [facility] Address [address] [place] [address] Care Team Providers Care Medical Practice Administrator Name Role Phone Jj Escobedo MD Primary Care Provider [phone] Encounter Details Date Type Department Care Team (Latest Contact Info) Description 11/20/2021 Judobaby Message Enc [facility] Multispecialty Care - [place] [address] [place] [address] [address] [place] [address] [place] [address] [place] [address] [address] [place], [place] [id number] Due for next visit. Social History Tobacco [...] documented as of this encounter Care Teams Medical Practice Administrator Relationship Specialty Start Date End Date Jj Escobedo MD [address] [facility] [address] [place] [address] PCP - General INTERNAL MEDICINE 04/04/21 documented as of this encounter
--- OUTSIDE RECORDS SUMMARY | 2024-12-25 11:13 | XMS_ITS | Clinical Summary ---
Author Organization [facility] Address [address] [place] [address] Care Team Providers Care Aquatic Physiotherapist Name Role Phone Betty Torre Primary Care Provider [phone] Allergies No known active allergies Medications Medication [...] 80 05/07/2019 2:13 PM CDT Temperature 36.7 C (98 F) 05/07/2019 2:13 PM CDT Respiratory Rate 18 [...] 2006 Fecal Occult Blood 2006 Sigmoidoscopy 2006 Pneumococcal Vaccine 50+ (1 of 1 - PCV) 2011 Shingles Vaccine (1 of 2) 2011 COVID-19 Vaccine (1 - 2024-2 5 season) 2024 Influenza Vaccine (#1) 2024 DTaP/Tdap/Td Vaccine (4 - Td or Tdap) 06/10/2028 06/10/2018, 04/07/2013, 03/16/2013 Respiratory Syncytial Virus (RSV) Vaccine 60+ (1 - 1-dose 75+ series) 2036 HPV Vaccine Aged Out No longer eligi ble based on patient's age to complete this topic Hepatitis A Vaccine Aged Out No longe r eligible based on patient's age to complete this topic Hepatitis B Vaccine (For Physician/APC Discussion) Aged Out No longer elig ible based on patient's age to complete this topic Meningococcal Serogroup B Vaccine Aged Out No longer eligible b ased on patient's age to complete this topic Meningococcal Vaccine Aged Out No [place] kin eligible based on patient's age to complete this topic Pneumococcal Vaccine 0-49 Aged Out No longer eligible based on patient's age to complete this topic Care Teams Aquatic Physiotherapist Relationship Specialty Start Date End Date Betty Torre DO PCP - General 05/07/19
--- OUTSIDE RECORDS SUMMARY | 2024-12-25 11:13 | XMS_ITS | Referral Summary ---
Author Organization [facility] Address [address] [place], [place] [id number] Care Team Providers Care Collection Supervisor Name Role Phone Betty Torre DO Primary Care Provider [phone] Allergies No known active allergies Medications Medication [...] of Treatment Not on file Care Teams Collection Supervisor Relationship Specialty Start Date End Date Betty Torre DO PCP - General 05/07/19
[2024-12-25 13:53] LABS: Hematocrit 43.7 % (37.0-47.0); Hemoglobin 14.4 g/dL (12.0-15.0); Mean Corpuscular Hemoglobin 33.4 pg (26-34); Mean Corpuscular Volume 101.4 fl (80-100); Mean Platelet Volume 10.3 fl (7.4-10.4); Platelet Count Result 206 k/mm3 (150-375); Red Blood Count 4.31 M/mm3 (4.2-5.4); Red Cell Distribution Width 11.7 % (11.5-14.5); White Blood Count 4.5 K/mm3 (4.5-10.0)
[2024-12-25 14:41] LABS: Alanine Aminotransferase 102 U/L (6-35); Albumin Level 4.6 g/dL (3.5-5.1); Alkaline Phosphatase 80 U/L (38-126); Anion Gap 10 mmol/L (4-12); Aspartate Amino Transferase 80 U/L (14-36); Bilirubin,Total 0.8 mg/dL (0.2-1.3); Blood Urea Nitrogen 9 mg/dL (7-17); Calcium 9.9 mg/dL (8.4-10.2); Carbon Dioxide 30 mmol/L (22-30); Chloride 99 mmol/L (98-107); Cholesterol 230 mg/dL (0-200); Estimated Glomerular Filt Rate > 60; Glucose 89 mg/dL (65-110); HDL Direct 70 mg/dL; Potassium 4.4 mmol/L (3.4-5.0); Sodium 139 mmol/L (137-145); Triglycerides 86 mg/dL (<150)
[2024-12-25 14:51] LABS: LDL Cholesterol Direct 133 mg/dL
[2024-12-25 15:45] LABS: Free T4 Free Thyroxine 1.03 ng/dL (0.78-2.19)
== END 2024-12-25 08:08 | disposition home or self-care (01) ==
LOC: ANHGOSHLAB 08:08
PROVIDERS: PCP Family Medicine; Visit Provider Family Medicine
DX: E03.9 Hypothyroidism, unspecified (principal); I10 Essential (primary) hypertension; E66.3 Overweight; R79.89 Other specified abnormal findings of blood chemistry
CPT/HCPCS: 36415; 80053; 80061; 84439; 84443; 85027

== ENCOUNTER 2024-12-25 10:40 | Outpatient (CLI) | payer OTHER, SELFPAY ==
--- NOTE | ~2024-12-25 | MM_ITS ---
EXAMINATION: MM screening aria BI w bonifacio HISTORY: Screening TECHNIQUE: Craniocaudal and mediolateral oblique 3-D tomosynthesis images were obtained and synthetic 2-D images were generated. CAD analysis was submitted and interpreted. COMPARISON: Comparison to multiple prior studies sequentially, with oldest reviewed study dated 11/18. BREAST PARENCHYMAL COMPOSITION: Not dense: There are scattered areas of fibroglandular density. FINDINGS: There is no evidence of suspicious mass, calcification, or architectural distortion to sugg est malignancy in either breast. There has been no suspicious interval change. IMPRESSION: 1. No mammographic evidence of malignancy. 2. Recommend routine screening mammography in one year. BI-RADS Category 1: Negative Reviewed, dictated and finalized at location B. GLASS CUTTER
== END 2024-12-25 10:41 | disposition home or self-care (01) ==
PROVIDERS: PCP Family Medicine; Visit Provider Family Medicine
DX: Z12.31 Encounter for screening mammogram for malignant neoplasm of breast (principal)
CPT/HCPCS: 77063; 77067

== ENCOUNTER 2024-12-29 08:18 | Outpatient (CLI) | payer OTHER, SELFPAY ==
--- NOTE | ~2024-12-29 | US_ITS ---
Limited Abdominal Sonogram: Real-time sonographic imaging of the right upper quadrant was performed. Clinical History: Abnormal serum enzyme levels Findings: The liver appears echogenic, with no evidence of solid mass lesion or bile duct dilatation . Main portal vein demonstrates normal direction of flow. Small hepatic cyst present. The gallbladder is well distended, and appears normal with no evidence of gallstone or wall thickening. The common b ile duct measures 5 mm. The visualized pancreas, aorta, and IVC are unremarkable. Impression: Diffuse fatty infiltration of the liver. Reviewed, dictated and finalized at location M. EN PLANT OPERATOR Impression: Diffuse fatty infiltration of the liver.
== END 2024-12-29 08:19 | disposition home or self-care (01) ==
LOC: MICIMG 08:19
PROVIDERS: PCP Family Medicine; Visit Provider Family Medicine
DX: R74.8 Abnormal levels of other serum enzymes (principal); K76.0 Fatty (change of) liver, not elsewhere classified
CPT/HCPCS: 76705

== ENCOUNTER 2025-01-16 09:47 | Outpatient (CLI) | payer OTHER, SELFPAY ==
[2025-01-16 14:01] LABS: Anion Gap 10 mmol/L (4-12); Carbon Dioxide 30 mmol/L (22-30); Chloride 102 mmol/L (98-107); Sodium 142 mmol/L (137-145)
== END 2025-01-16 09:48 | disposition home or self-care (01) ==
LOC: ANHGOSHLAB 09:48
PROVIDERS: PCP Family Medicine
DX: L71.8 Other rosacea (principal); Z79.899 Other long term (current) drug therapy
CPT/HCPCS: 36415; 80051

== ENCOUNTER 2025-07-19 11:02 | Emergency (ER) | payer OTHER, SELFPAY ==
--- NOTE | ~2025-07-19 | XR_ITS ---
XR lumbar spine 2-3V Indication: low back pain with right sciatica x 5 weeks, weedwhacking in Comparison: None Findings: Minimal dextroconvex scoliosis. No acute fracture or subluxation Moderate loss of disc height at L4-5 and L5-S1. Soft tissues unremarkable Impression: No acute abnormality. Reviewed, dictated and finalized at location A. Impression: No acute abnormality.
[2025-07-19 11:15] VITALS: BP 133/95; PULSE 87; RESP 16; TEMP 36.6; O2SAT 97
--- NOTE | 2025-07-19 11:24 | ED.BACK ---
HPI - Back Pain/Injury General Chief Complaint: Back Pain/Injury Stated Complaint: LOW BACK PAIN Time Seen by Provider: 07/19/25 11:20 Source: patient Mode of arrival: ambulatory Limitations: no limitations History of Present Illness HPI Narrative: Gabriella is a 65-year-old female patient presenting to the clinic today with complaints of low back pain x4 weeks. She reports she was weedeating the yd when she felt a twinge in her low back. Has been trying to ice and rest her back. Her back was not improving after 2 weeks so she seen a chiropractor and fell as though this made her back pain worse. She has stayed after seeing the chiropractor she had difficulty walking. Denies any saddle anesthesia or loss of bowel or bladder. Report sharp pain with numbness and tingling going into the right posterior leg. Denies any urinary symptoms. Related Data Home Medications ?Medication ?Instructions ?Recorded ?Confirmed ?Last Taken ?Type fluocinonide 0.05 % topical 1 applic topical DAILY PRN Itching 09/07/23 12/22/24 Unknown History solution multivitamin 1 tablet PO DAILY 09/07/23 12/22/24 Unknown History Fish Oil 1 tsp PO DAILY 11/23/24 12/22/24 Unknown History cholecalciferol (vitamin D3) 50 50 mcg PO DAILY 11/23/24 12/22/24 Unknown History mcg (2,000 unit) capsule doxycycline hyclate 50 mg capsule 50 mg PO DAILY 11/23/24 12/22/24 Unknown History vitamin B complex with vit C-folic 1 tablet PO DAILY 11/23/24 12/22/24 Unknown History acid 800 mcg-zinc 12.5 mg tablet spironolactone 50 mg tablet mg 07/19/25 Unknown History Allergies Allergy/AdvReac Type Severity Reaction Status Date / Time No Known Allergies Allergy Verified 07/19/25 11:16 Review of Systems Review of Systems: Pertinent positives per HPI. Patient denies any fever, chills, rash, headache, visual changes, dizziness, cough, runny nose, sore throat, shortness of breath, chest pain, palpitations, nausea, vomiting, diarrhea, constipation, abdominal pain, or any urinary issues. [facility] Past Medical History Medical History GERD (gastroesophageal reflux disease) Allergies Broken arm Right Surgery as a child Family History Family History Father Alcoholism Carcinoma of colon Lung cancer Mother COPD (chronic obstructive pulmonary disease) Sibling Lung cancer Brain cancer Grandparent Lung cancer Heart disease Social History Social History Years smoked: 15 Smoking status: Never smoker Tobacco type: cigarettes Alcohol intake: current Alcohol use details: 2 drinks/day Substance use type: does not use Living arrangements: with family Gender identity (if verbalized by the patient): Female Spiritual care concerns: No Comments At the time of my signature, I reviewed and agree with the nursing past medical, surgical, social, and family history. There is no relevant family history pertinent to the patient complaint. Exam Narrative: General: Well-developed, well nourished, in no apparent distress Head: Normocephalic, atraumatic. Cardio: Regular rate and rhythm, s1 and s2 normal, no murmur appreciated. Resp: Clear to auscultation bilaterally, no rhonchi, rales, wheezing or rubs. Musculoskeletal: No deformity, tender to palpation over L4-L5 and L5-S1, cautious and painful movement with flexion and extension of the back and with position changes, grossly normal range of motion, muscle strength strong and equal in BLE. patellar reflexes 2/4 bilaterally, negative foot drop, normal gait and station Course Course Emergency Course: Portions of this record may have been created with voice recognition software. Level of Care: Express Care Visit Vital Signs Vital signs: Vital Signs Temperature 36.6 C 07/19/25 11:15 Pulse Rate 87 07/19/25 11:15 Respiratory Rate 16 07/19/25 11:15 Blood Pressure 133/95 H 07/19/25 11:15 Pulse Oximetry 97 07/19/25 11:15 Temperature 36.6 C 07/19/25 11:15 Pulse Rate 87 07/19/25 11:15 Respiratory Rate 16 07/19/25 11:15 Blood Pressure 133/95 H 07/19/25 11:15 Pulse Oximetry 97 07/19/25 11:15 Vital signs reviewed MDM - Back Pain/Injury MDM Narrative Medical decision making narrative: At the time of visit patient is resting comfortably on the exam table. Patient appears to be nontoxic. complaints of low back pain x4 weeks. She reports she was weedeating the yd when she felt a twinge in her low back. Has been trying to ice and rest her back. Her back was not improving after 2 weeks so she seen a chiropractor and fell as though this made her back pain worse. She has stayed after seeing the chiropractor she had difficulty walking. Denies any saddle anesthesia or loss of bowel or bladder. Report sharp pain with numbness and tingling going into the right posterior leg. Denies any urinary symptoms. On exam patient has low back tenderness over L4-L5, L5-S1. Negative for foot drop, lower extremities strong and equal, patellar reflexes 2+ bilateral, no radiation of pain at this time. Lumbar spine x-ray was ordered Diagnostics: Lumbar spine x-ray was performed and shows no acute fracture or malalignment. Does show degenerative disc changes from L4-L5 and L5-S1. Plan: I suspect patient has low back pain with right-sided sciatica with degenerative disc changes of L4-L5 and L5-S1. Prescription for Medrol Dosepak and baclofen was sent to the pharmacy. Supportive measures were discussed with the patient and they voiced understanding discharge instructions and agrees to treatment plan. If symptoms persist after medication recommend follow-up with PCP for further evaluation. Return precautions reviewed Differential Diagnosis Differential diagnosis: Likely lumbar radiculopathy, sciatica, strain of lumbar region, renal colic, pyelonephritis, thoracic back pain, AAA and discitis Imaging Data Radiologist's impression: ITS Impressions Lumbar Spine X-Ray 07/19/25 11:42 Impression: No acute abnormality. Discharge Plan Discharge Clinical Impression: Acute low back pain with right-sided sciatica, Degenerative disc disease Patient Disposition: Home Condition: Stable Instructions: Antibiotic Form, Sciatica (ED), Acute Low Back Pain (ED), Degenerative Disc Disease (ED), Lower Back Exercises (ED) Additional Instructions: Take any prescription medication only as prescribed-Medrol Dosepak and baclofen Be mindful of sedation precautions given to you if taking a muscle relaxer. May use heat or ice to the affected area May use blue emu, lidocaine patches, or asper cream to affected area- do not apply heat or ice directly over cream- can cause burn. Complete appropriate back stretching exercises. Follow up with your PCP in 3-5 days if symptom persist. Patient Language: Niuean Prescriptions: New baclofen 10 mg tablet 10 mg PO TID PRN (Reason: muscle spasm) 7 Days Qty: 21 0RF methylprednisolone [Medrol (Mark)] 4 mg tablets,dose pack See Rx Instructions PO .COMPLEX Qty: 21 0RF Rx Instructions: orally per package directions No Action spironolactone 50 mg tablet buspirone 7.5 mg tablet 7.5 mg PO BID Qty: 180 0RF fluocinonide 0.05 % solution 1 applic topical DAILY PRN (Reason: Itching) multivitamin Tablet 1 tablet PO DAILY doxycycline hyclate 50 mg capsule 50 mg PO DAILY Fish Oil 1 tsp liquid 1 tsp PO DAILY vit B [id number] ac-[id number] 800 mcg- 12.5 mg tablet 1 tablet PO DAILY cholecalciferol (vitamin D3) 50 mcg (2,000 unit) capsule 50 mcg PO DAILY Follow-up/Referrals: Eva Loaiza DO [Primary Care Provider, [facility]] Time of Disposition: 11:48 Quality NIHSS Nursing Documentation ED NIHSS nursing documentation: reviewed/agree
== END 2025-07-19 11:58 | disposition home or self-care (01) ==
PROVIDERS: Emergency Provider Nurse Practitioner Family; PCP Family Medicine
DX: M54.41 Lumbago with sciatica, right side (principal); M51.379 Other intervertebral disc degeneration, lumbosacral region without mention of lumbar back pain or lower extremity pain; K21.9 Gastro-esophageal reflux disease without esophagitis
CPT/HCPCS: 72100; 99213; G0463